=== PATIENT | female | born 1980 | race Caucasian/White ===

== ENCOUNTER 2025-07-20 13:42 | Emergency (ER) | payer BC ==
[2025-07-20] MEDS ORDERED: Sodium Chloride 0.9% 10 ML Syringe FLUSH PRN (14:09)
[2025-07-20] MEDS: Lactated Ringers 1,000 ML IV SCH (14:27)
[2025-07-20] MEDS: Ondansetron 4 MG/2 ML SDV IVPUSH ONE (14:27)
[2025-07-20 14:29] LABS: BASOPHILS ABSOLUTE AUTO 0.05 K/uL (0.00-0.20); BASOPHILS PERCENT AUTO 0.5 % (0.0-2.0); EOSINOPHILS ABSOLUTE AUTO 0.03 K/uL (0.00-0.50); EOSINOPHILS PERCENT AUTO 0.3 % (0.0-5.0); IMMATURE GRAN ABSOLUTE AUTO 0.02 10^3/uL (0.00-0.04); IMMATURE GRAN PERCENT AUTO 0.2 % (0.0-0.4); LYMPHOCYTES ABSOLUTE AUTO 1.58 K/uL (0.50-3.50); LYMPHOCYTES PERCENT AUTO 14.3 % (10.0-50.0); MONOCYTES ABSOLUTE AUTO 0.50 K/uL (0.00-1.00); MONOCYTES PERCENT AUTO 4.5 % (2.0-14.0); NEUTROPHILS ABSOLUTE AUTO 8.88 K/uL (1.40-7.00); NEUTROPHILS PERCENT AUTO 80.2 % (45.0-80.0); PLATELET COUNT,PLT 315 K/uL (150-350); RED BLOOD CELL COUNT 4.58 M/uL (3.77-5.09); RED CELL DISTRIBUTION WIDTH 12.7 % (11.2-14.1); WHITE BLOOD CELL COUNT,WBC 11.1 K/uL (4.0-10.2)
[2025-07-20 14:49] LABS: LACTIC ACID 1.4 mmol/L (0.4-2.0)
[2025-07-20 14:58] LABS: ASPARTATE AMNIOTRANSFERASE,AST 17.0 U/L (15-37); BILIRUBIN TOTAL 0.5 mg/dL (0.2-1.0); BLOOD UREA NITROGEN,BUN 15.0 mg/dL (7-18); CARBON DIOXIDE,CO2 22.2 mmol/L (21.0-32.0); CHLORIDE,CL 106.0 mmol/L (98-107); CREATINE KINASE,CK 122.0 U/L (26-308); GLUCOSE RANDOM 106.0 mg/dL (70-99); POTASSIUM,K 4.0 mmol/L (3.5-5.1); PROTEIN TOTAL,TP 7.6 g/dL (6.4-8.2); SODIUM,NA 139.0 mmol/L (136-145)
[2025-07-20 15:08] LABS: ALANINE AMINOTRANSFERASE,ALT 32.0 U/L (12-78); CREATININE 1.05 mg/dL (0.51-1.17); EST CRCL DRUG DOSING (CG) 69.97 mL/min
[2025-07-20 15:09] LABS: ESTIMATED GFR 66.0 mL/min (>=60)
[2025-07-20 15:31] LABS: GLUCOSE,URINE NEGATIVE (NEGATIVE); OCCULT BLOOD,URINE MODERATE (NEGATIVE)
[2025-07-20 15:38] LABS: APPEARANCE,URINE CLOUDY
== END 2025-07-20 16:45 | disposition home or self-care (01) ==
LOC: LL.ED 13:42
DX: E86.0 Dehydration (principal)
CPT/HCPCS: 36415; 80053; 81001; 81025; 82150; 82550; 83605; 83690; 83735; 85025; 86140; 96361; 96374; 96375; 99284; J2405; J7120; J1171